=== PATIENT | male | born 1990 | race Caucasian/White ===

== ENCOUNTER 2023-12-07 13:42 | Emergency (ER) | payer OTHER, SELFPAY ==
--- NOTE | ~2023-12-07 | XR_ITS ---
XR chest 2V DATE: 12/07/2023 14:22 INDICATION: Chest pain TECHNIQUE: 2 views, AP and lateral projections COMPARISON: None FINDINGS: Normal heart size. No hilar or mediastinal enlargement. No pulmonary infiltrate or consolid ation, pleural effusion or pulmonary vascular congestion or pneumothorax is detected. There is mild levoscoliosis of the thoracic spine. IMPRESSION: No active cardiopulmonary disease Reviewed, dictated and finalized at location [facility] FROZEN MANAGER
--- NOTE | 2023-12-07 13:43 | ECG_ITS ---
Measurements Intervals [place] Rate: 105 P: 51 PA: 160 QRS: 32 QRSD: 89 T: 38 QT: 333 QTc: 441 Interpretive Statements SINUS TACHYCARDIA INCOMPLETE RIGHT BUNDLE BRANCH BLOCK BASELINE ARTIFACT- I, II, AVR, AVL, AVF, V1 BORDERLINE ECG NO PREVIOUS ECG AVAILABLE FOR COMPARISON Electronically Signed On 12-07-2023 13:57:42 BIRDCAGE ASSEMBLER by Francois Francis D.O.
[2023-12-07 13:54] VITALS: BP 154/90; PULSE 100; RESP 16; TEMP 36.7; O2SAT 100
[2023-12-07 14:39] LABS: Basophils Absolute Auto 0.1 K/mm3 (0.0-0.1); Basophils Percent Auto 0.8 % (0.2-1.2); Eosinophils Absolute Auto 0.3 K/mm3 (0-0.3); Eosinophils Percent Auto 5.4 % (0-4.4); Hematocrit 44.8 % (42.0-52.0); Hemoglobin 15.3 g/dL (14.0-18.0); Immature Granulocyte Absolute 0.01 K/mm3 (0.00-0.031); Immature Granulocyte Percent A 0.2 % (0-0.5); Lymphocytes Percent Auto 50.3 % (18.3-44.2); Mean Corpuscular HGB Conc 34.2 g/dl (32-36); Mean Corpuscular Hemoglobin 29.7 pg (26-34); Mean Platelet Volume 9.9 fl (7.4-10.4); Monocytes Absolute Auto 0.6 K/mm3 (0.1-0.6); Monocytes Percent Auto 9.3 % (2.6-8.5); Neutrophils Absolute Auto 2.1 K/mm3 (1.3-6.7); Platelet Count Result 218 k/mm3 (150-375); Red Blood Count 5.15 M/mm3 (4.6-6.20); Red Cell Distribution Width 12.5 % (11.5-14.5); White Blood Count 6.2 K/mm3 (4.5-10.0)
[2023-12-07 14:51] LABS: Prothrombin Time 13.4 Seconds (11.1-14.7)
[2023-12-07 14:52] LABS: Partial Thromboplastin Time 29.5 SECONDS (22.3-36.8)
[2023-12-07 14:56] LABS: Alanine Aminotransferase 107 U/L (6-50); Albumin Level 4.4 g/dL (3.5-5.1); Alkaline Phosphatase 69 U/L (38-126); Anion Gap 12 mmol/L (8-16); Aspartate Amino Transferase 51 U/L (17-59); Blood Urea Nitrogen 13 mg/dL (9-20); Calcium 9.3 mg/dL (8.4-10.2); Carbon Dioxide 25 mmol/L (22-30); Chloride 105 mmol/L (98-107); Estimated CRCL calculation 92 ml/min; Estimated Glomerular Filt Rate > 60; Glucose 90 mg/dL (65-110); Lipase 176 U/L (23-300); Potassium 3.5 mmol/L (3.4-5.0); Sodium 142 mmol/L (137-145)
[2023-12-07 15:05] LABS: Troponin I < 0.012 ng/mL (0.000-0.034)
[2023-12-07 16:16] VITALS: BP 138/89; PULSE 88; RESP 14; O2SAT 99
[2023-12-07 17:23] VITALS: BP 137/91; PULSE 92; TEMP 36.7; O2SAT 100
--- NOTE | 2023-12-07 17:23 | ECG_ITS ---
Measurements Intervals [place] Rate: 96 P: 46 MT: 148 QRS: 32 QRSD: 87 T: 37 QT: 346 QTc: 439 Interpretive Statements SINUS RHYTHM WITH SINUS ARRHYTHMIA INCOMPLETE RIGHT BUNDLE BRANCH BLOCK BORDERLINE ECG COMPARED TO ECG 12/07/2023 13:50:31 SINUS RHYTHM NOW PRESENT SINUS ARRHYTHMIA NOW PRESENT Electronically Signed On 12-07-2023 19:07:52 LEGAL CLERK by Francois Francis D.O.
[2023-12-07 18:20] LABS: Troponin I < 0.012 ng/mL (0.000-0.034)
[2023-12-07 18:51] VITALS: BP 156/90; PULSE 93; RESP 16; TEMP 37.2; O2SAT 99
--- NOTE | 2023-12-07 18:59 | ED.CHESTPAIN ---
HPI - Chest Pain General Chief Complaint: Chest Pain Stated Complaint: chest pain x1 week Time Seen by Provider: 12/07/23 18:58 History of Present Illness HPI narrative: Patient is a 33-year-old male with no past medical history here today with chest pain. He states that his chest pain has been present over the last week. He notes it is left-sided and wraps around to the back on the left side. Initially extends into his shoulder. He denies any diaphoresis, shortness of breath, changes with exertion. He does note that he is currently moving and moving a lot of furniture and boxes around his home and is unsure if this has caused the pain. No cough. Mild congestion. No history of PE or DVT. No recent travel. No family history of cardiac disease. Related Data Home Medications Medication Instructions Recorded Confirmed No Home Medications 12/07/23 12/07/23 Allergies Allergy/AdvReac Type Severity Reaction Status Date / Time No Known Allergies Allergy Verified 12/07/23 18:52 Review of Systems Review of Systems: All systems reviewed & are unremarkable except as noted in HPI and below Exam Narrative: GENERAL: Well-appearing, well-nourished, and in no acute distress. HEAD: Normocephalic, atraumatic. EYES: PERRLA and EOMI. ENT: Nares clear. Mucous membranes moist. NECK: Supple. CHEST: Clear to auscultation. No respiratory distress. HEART: Regular rate and rhythm. Normal peripheral pulses. ABDOMEN: Soft, nontender, nondistended. EXTREMITIES: Normal range of motion. No lower extremity edema or calf tenderness. Reproducible tenderness to the anterior left shoulder. Normal PMS distal to shoulder. SKIN: Warm, dry, no rash. NEURO: No focal deficits. Alert and oriented x3. PSYCH: Normal mood and affect. Course Course Emergency Course: Chart review performed. Patient here for chest pain intermittent x 1 week. Triage vitals show HTN, otherwise normal. Triage chest pain protocol reviewed. CBC within normal limits. Chemistry within normal limits. Troponin negative x2. No prior visits here in our system. Patient seen evaluated, nontoxic appearing. Negative workup thus far. Unable to apply PERC criteria due to tachycardia on presentation. Will add on D-dimer. HEART score of 1. Anticipate discharge. Repeat troponins are negative, D-dimer negative. The results of pertinent diagnostic studies and exam findings were discussed. The patient?s provisional diagnosis and plan of care were discussed with the patient and present family. The patient and/or present family expressed understanding of the diagnosis and plan. The nurse was instructed to provide written instructions and appropriate follow-up information. The patient understands their need and responsibility to obtain additional follow-up as instructed. The risks of medications administered and prescribed were discussed with the patient and family present. Vital Signs Vital signs: Vital Signs Temperature 98.1 F 12/07/23 13:54 Pulse Rate 100 12/07/23 13:54 Respiratory Rate 16 12/07/23 13:54 Blood Pressure 154/90 H 12/07/23 13:54 Pulse Oximetry 100 12/07/23 13:54 Oxygen Delivery Room Air 12/07/23 13:54 Temperature 98.9 F 12/07/23 18:51 Pulse Rate 93 12/07/23 18:51 Respiratory Rate 16 12/07/23 18:51 Blood Pressure 156/90 H 12/07/23 18:51 Pulse Oximetry 99 12/07/23 18:51 Oxygen Delivery Room Air 12/07/23 13:54 MDM - Chest Pain Lab Data 12/07/23 13:54 12/07/23 13:54 Labs: Lab Results 12/07/23 12/07/23 12/07/23 Range/Units 13:54 13:55 17:28 WBC 6.2 (4.5-10.0) K/mm3 RBC 5.15 (4.6-6.20) M/mm3 Hgb 15.3 (14.0-18.0) g/dL Hct 44.8 (42.0-52.0) % MCV 87.0 (80-100) fl MCH 29.7 (26-34) pg MCHC 34.2 (32-36) g/dl RDW 12.5 (11.5-14.5) % Plt Count 218 (150-375) k/mm3 MPV 9.9 (7.4-10.4) fl Immature Gran % (Auto) 0.2 (0-0.5) % Neut % (Auto)
[2023-12-07 20:48] LABS: Troponin I < 0.012 ng/mL (0.000-0.034)
[2023-12-07 20:52] LABS: D Dimer 0.28 ug/mL (<0.48)
[2023-12-07] MEDS: KETOROLAC 30 MG/ML VIAL (*BKC) 15 MG IM (21:19)
[2023-12-07 21:23] VITALS: BP 142/97; PULSE 74; RESP 15; O2SAT 97
== END 2023-12-07 21:26 | disposition home or self-care (01) ==
PROVIDERS: Emergency Medicine; Emergency Provider Student in an Organized Health Care Education/Training Program
DX: R07.89 Other chest pain (principal); R00.0 Tachycardia, unspecified; I45.10 Unspecified right bundle-branch block
CPT/HCPCS: 36415; 71046; 80053; 83690; 84484; 85025; 85380; 85610; 85730; 93005; 96372; 99284; J1885

== ENCOUNTER 2025-01-16 09:47 | Emergency (ER) | payer BC, SELFPAY ==
[2025-01-16 10:05] VITALS: BP 132/85; PULSE 113; RESP 15; TEMP 37.3; O2SAT 98
--- NOTE | 2025-01-16 10:12 | ED.URI ---
HPI - URI/Sore Throat General Chief Complaint: Upper Respiratory Infection Stated Complaint: Sinus Time Seen by Provider: 01/16/25 09:50 Source: patient Mode of arrival: ambulatory Limitations: no limitations History of Present Illness HPI Narrative: Patient is a 34-year-old male that presents with congestion, headache, body ache, fatigue, nausea, diarrhea and GI upset since yesterday. Denies any fever, chills, sore throat, vomiting, cough. Has not taken anything for symptoms. For Related Data Allergies Allergy/AdvReac Type Severity Reaction Status Date / Time No Known Allergies Allergy Verified 01/16/25 09:55 Review of Systems Review of Systems: All systems reviewed & are unremarkable except as noted in HPI and below Constitutional: Constitutional: Denies chills, Reports fatigue, Denies fever(s), Reports headache(s), Denies malaise and Denies weakness Eyes: Eyes: Denies blurry vision, Denies itchy eyes and Denies loss of vision ENT: Denies otalgia, Reports headache(s), Reports nasal congestion, Denies sinus pain and Denies sore throat Cardiovascular: Cardiovascular: Denies chest pain, Denies irregular heart rhythm and Denies dyspnea Respiratory: Respiratory: Reports cough and Denies dyspnea Gastrointestinal: Gastrointestinal: Reports abdominal pain, Denies diarrhea, Reports nausea and Denies vomiting Musculoskeletal: Musculoskeletal: Denies back pain, Reports myalgias and Denies arthralgias Integumentary/Breasts: Skin/Breast: Denies pruritus and Denies rash Neurologic: Reports headache(s), Denies loss of vision and Denies weakness Psychiatric: Psychiatric: Reports no additional psychiatric complaints Endocrine: Endocrine: Denies fatigue Allergic/Immunologic: Allergic/Immunologic: Denies itchy eyes PMFSH Past Medical History Medical History Chronic sinusitis Surgical History Surgical History H/O nasal septoplasty 12/2023 H/O hernia repair 2017 Family History Family History Grandparent Colon cancer Social History Social History Smoking status: Never smoker Alcohol intake: never Substance use: never Substance use type: does not use Do You Feel Safe in your Home?: Yes Lack of Transportation: No Lack of Food: Never True Current Housing: I Have Housing Concerned About Future Housing: No Difficulty Paying Gas/Electric Bills: No Difficulty Paying for Meds: No Currently Unemployed: No Education: Bachelor's Degree Difficulty w/ Childcare or Family Care: No Comments At time of signature, agree with nursing past medical, surgical, social and family history. There is no relevant family history pertinent to the presenting complaint. Exam Const: General: cooperative, healthy appearing, comfortable, no acute distress and well nourished Nutritional Appearance: well nourished Orientation/consciousness: patient oriented x3 Limitations: no limitations HENMT: Head: normal to inspection, normocephalic and atraumatic Ears: hearing grossly normal bilaterally, external ears normal, TM's normal bilaterally, EAC's normal and no periauricular adenopathy Face/Nose/Sinus: Normal external nose present, Abnormal mucous membranes and turbinates present erythematous bilateral and diffuse, normal facial exam, sinuses nontender and face symmetric Face and sinus: normal facial exam, sinuses nontender and face symmetric Mouth: Yes Normal oral and palatal mucosa present, Yes lip normal, Yes tongue normal, Yes Normal salivary glands and ducts present, Yes oropharynx normal and Yes moist mucous membranes Teeth and gingiva: dentition normal Throat: posterior oropharynx normal, tonsils normal and uvula midline Eyes: General: appearance normal, both eyes and all related structures Alignment and Position: alignment normal and position normal Periorbital: periorbital findings normal Eyelids: eyelids normal Pupils: Equal, round and reactive pupils present Neck: Neck: normal visual inspection, full ROM, no lymphadenopathy and supple Chest: Chest palpation & inspection: normal inspection of the chest and normal palpation of entire chest wall Resp: Effort & Inspection: normal respiratory effort and able to speak in complete sentences Auscultation: clear to auscultation bilaterally, no crackles, no rales, no rhonchi and no wheezes Cardio: Rate: tachycardic Rhythm: regular rhythm Heart sounds: S1 normal heart sound present and S2 normal heart sound present GI: Inspection: normal to inspection Skin: General skin exam: normal color and no rashes or lesions noted Neuro: General: patient oriented x3 and moves all extremities Cranial nerves: Yes Equal, round and reactive pupils present Speech: normal speech Gait exam (Neuro): Normal gait present Extrem: General: normal to inspection, full ROM and no edema Psych: Appearance: grossly normal and well kempt Mental Status: mental status grossly normal Speech and movement: Normal speech and movement present Affect: normal affect Attitude: cooperative Thought process: Normal thought process present Course Course Emergency Course: Discharge instructions reviewed with patient, as well as provided in writing per nursing staff. The instructions also include specific and strict return/GO TO THE ER as well as f/u information. All questions have been answered, and the patient deny any further questions with discharge and discharge plan. Portions of this record may have been created with voice recognition software Level of Care: Express Care Visit Vital Signs Vital signs: Vital Signs Temperature 37.3 C 01/16/25 10:05 Pulse Rate 113 H 01/16/25 10:05 Respiratory Rate 15 01/16/25 10:05 Blood Pressure 132/85 01/16/25 10:05 Pulse Oximetry 98 01/16/25 10:05 Oxygen Delivery Room Air 01/16/25 10:05 Temperature 37.3 C 01/16/25 10:05 Pulse Rate 113 H 01/16/25 10:05 Respiratory Rate 15 01/16/25 10:05 Blood Pressure 132/85 01/16/25 10:05 Pulse Oximetry 98 01/16/25 10:05 Oxygen Delivery Room Air 01/16/25 10:05 Reviewed MDM - URI/Sore Throat MDM Narrative Medical decision making narrative: Pt well hydrated appearing, in no respiratory distress, hemodynamically stable. Recommend supportive care. The patient is stable at time of discharge the clinical impression was discussed and the patient was given the opportunity to ask questions, which were addressed as completely as possible given the information available at present. Anticipatory guidance and return to care precautions were discussed and the importance of primary care follow-up was stressed and encouraged. The patient voiced understanding of the plan, indications to return, and the need for follow-up. Differential diagnosis considered: Bronchitis, Ojhnson virus, strep pharyngitis, allergic rhinitis, upper respiratory tract infection, sinusitis, rhinosinusitis, nasopharyngitis. viral pharyngitis, otitis media, otitis externa, otitis effusion, foreign body, cerumen impaction, viral syndrome, and influenza.? Exam findings show no acute concerns or changes; patient is non-toxic appearing and is in no distress.? Patient is appropriate for outpatient treatment and follow-up.? Medical Records Attestation: I reviewed the patient's medical records. Lab Data Attestation: I reviewed the patient's lab results. Labs: Lab Results 01/16/25 Range/Units 10:16 POC Influenza A Ag Positive (Negative) POC Influenza B Ag Negative (Negative) POC SARS CoV-2 Ag Negative (Negative) Discharge Plan Discharge Clinical Impression: Influenza Patient Disposition: Home, Self-Care Condition: Stable Instructions: Influenza (ED) Additional Instructions: Were positive for influenza A. Your Covid is negative Your symptoms are due to a viral illness, which is not treated with antibiotics. Viral symptoms can be present for up to a few weeks. -For fever/pain, you may take: Tylenol 650-1000mg by mouth every 4-6 hours. Do not exceed 4000mg in 24 hours. Advil (Ibuprofen) 600 mg by mouth every 6 hours. Do not exceed 2400mg in 24 hours. 8 AM: Tylenol 11 AM: Ibuprofen 2 PM: Tylenol 5 PM: Ibuprofen 8 PM: Tylenol 11 PM: Ibuprofen 2 AM: Tylenol 5 AM: Ibuprofen -Antihistamine medication such as Benadryl/Zyrtec at night and Claritin/Rachele during the day can help improve symptoms. -Use Flonase twice a day for 5 days then daily to help reduce the inflammation and dry up your sinuses. -You can also use Sudafed behind the pharmacy counter(12 or 24 hour). Be sure to drink plenty of water with these medications at least 8 ounces with every dose and it is important to drink 8 to 10 glasses of water per day. Water is a natural decongestant -Eat and drink things that are easy to swallow, like tea or soup, or popsicles. -Oral rinses such as: Salt water gargles and/or may use topical anesthetic (eg. Chloraseptic spray) or lozenges to relieve dryness or throat pain). -Frequent hand washing or hand speech language pathologist travel is one of the best ways to prevent spread of infection. -Using a vaporizer or humidifier at night will also help thin secretions and help with coughing up phlegm. -Follow up with primary care provider in 3-5 days if condition is not improving - For new or worsening symptoms go directly to the nearest ER Patient Language: Cam[place] Prescriptions: New oseltamivir [Tamiflu] 75 mg capsule 75 mg PO Q12H 5 Days Qty: 10 0RF Follow-up/Referrals: oNam Dyson DO [Primary Care Provider] - 3 Days Stand Alone Forms: Work/School Release IP Time of Disposition: 10:24
[2025-01-16 10:18] LABS: EDCOVIDSCREEN Negative (Negative); EDINFLUASCREEN Positive (Negative); EDINFLUBSCREEN Negative (Negative)
== END 2025-01-16 10:30 | disposition home or self-care (01) ==
PROVIDERS: Emergency Provider Nurse Practitioner Family; PCP Family Medicine
DX: J10.1 Influenza due to other identified influenza virus with other respiratory manifestations (principal); Z20.822 Contact with and (suspected) exposure to COVID-19
CPT/HCPCS: 87426; 87804; 99213; G0463

== ENCOUNTER 2025-02-11 18:43 | Emergency (ER) | payer BC, SELFPAY ==
--- NOTE | 2025-02-11 18:52 | ED.URI ---
HPI - URI/Sore Throat General Chief Complaint: Upper Respiratory Infection Stated Complaint: sinus issue,face red,cough,weak Time Seen by Provider: 02/11/25 19:02 Source: patient and RN notes reviewed Mode of arrival: ambulatory Limitations: no limitations History of Present Illness HPI Narrative: 34-year-old male presents, drainage, pressure. Reports he had sinus surgery 5 days ago. He did not call his surgeon regarding these problems. He was prescribed a Medrol Dosepak after surgery, he was not aware of it and did not pick it upper take it. He reports he has been using saline rinses. He has not taken antihistamines because he has it upcoming allergy test. He reports some cough in general malaise. MD elicited complaint: sinus pain Related Data Home Medications ?Medication ?Instructions ?Recorded ?Confirmed ?Last Taken ?Type hydrocodone 5 mg-acetaminophen 325 tablet 02/11/25 Unknown History mg tablet methylprednisolone 4 mg tablets in mg 02/11/25 Unknown History a dose pack Allergies Allergy/AdvReac Type Severity Reaction Status Date / Time No Known Allergies Allergy Verified 02/11/25 18:44 Review of Systems Review of Systems: CONSTITUTIONAL: Reports malaise. Denies chills, sweats, or fever. EYES: Denies visual changes, redness, or discharge. ENT: Reports rhinorrhea, congestion, sinus pain CARDIOVASCULAR: Denies chest pain, palpitations, or edema. RESPIRATORY: Reports cough. Denies dyspnea. GASTROINTESTINAL: Denies abdominal pain, nausea, vomiting, diarrhea SKIN: Denies rash or itching. MUSCULOSKELETAL: Denies myalgia. NEUROLOGIC: Denies headache. All systems reviewed & are unremarkable except as noted in HPI and below PMFSH Past Medical History Medical History Chronic sinusitis Surgical History Surgical History H/O nasal septoplasty 12/2023 H/O hernia repair 2017 Family History Family History Grandparent Colon cancer Social History Social History Smoking status: Never smoker Alcohol intake: never Substance use: never Substance use type: does not use Do You Feel Safe in your Home?: Yes Lack of Transportation: No Lack of Food: Never True Current Housing: I Have Housing Concerned About Future Housing: No Difficulty Paying Gas/Electric Bills: No Difficulty Paying for Meds: No Currently Unemployed: No Education: Bachelor's Degree Difficulty w/ Childcare or Family Care: No Comments At time of signature, agree with nursing past medical, surgical, social and family history. There is no relevant family history pertinent to the presenting complaint Exam Narrative: GENERAL: Well-appearing, well-nourished, and in no acute distress. HEAD: Normocephalic EYES: PERRLA, conjunctivae clear ENT: Nares clear, turbinates edematous and erythematous, berry discharge. Mucous membranes moist. TM pearly francis with dull light reflex bilaterally; no tragal tenderness. Oropharynx not erythematous without lesions. Tonsils not enlarged and without exudate, no drooling, no hoarseness, no trismus, uvula midline. NECK: Supple. No lymphadenopathy CHEST: Clear to auscultation, breath sounds equal. No wheezing, rhonchi, rales, or stridor. No respiratory distress, speaks in full sentences. HEART: Regular rate and rhythm. No murmur heard. SKIN: Warm, dry, no rash. NEURO: Alert and oriented x3. PSYCH: Normal mood and affect Course Course Emergency Course: Patient was instructed to call his surgeon tomorrow. Anticipatory guidance given. Patient agrees to follow-up as directed and is aware of reasons to seek care at the emergency department. Portions of this record may have been created with voice recognition software Level of Care: Express Care Visit Vital Signs Vital signs: Vital Signs Temperature 98.7 F 02/11/25 18:54 Pulse Rate 95 02/11/25 18:54 Respiratory Rate 16 02/11/25 18:54 Blood Pressure 151/90 H 02/11/25 18:54 Pulse Oximetry 98 02/11/25 18:54 Oxygen Delivery Room Air 02/11/25 18:54 Temperature 98.7 F 02/11/25 18:54 Pulse Rate 95 02/11/25 18:54 Respiratory Rate 16 02/11/25 18:54 Blood Pressure 151/90 H 02/11/25 18:54 Pulse Oximetry 98 02/11/25 18:54 Oxygen Delivery Room Air 02/11/25 18:54 Reviewed. MDM - URI/Sore Throat MDM Narrative Medical decision making narrative: Differential diagnosis considered: Johnson virus, strep pharyngitis, allergic rhinitis, upper respiratory tract infection, sinusitis, rhinosinusitis, nasopharyngitis. viral pharyngitis, otitis media, otitis externa, pneumonia, bronchitis, viral cough syndrome, viral syndrome, and influenza. Exam findings show no acute concerns or changes; patient is non-toxic appearing and is in no distress. Patient is appropriate for outpatient treatment and follow-up. Lab Data Attestation: I reviewed the patient's lab results. Critical Care Time Critical Care Time Critical Care Time: No Discharge Plan Discharge Clinical Impression: Sinusitis Patient Disposition: Home, Self-Care Condition: Stable Instructions: Antibiotic Form, Sinusitis (ED) Additional Instructions: 1) Please follow-up with your ENT tomorrow. 2) If you have any worsening of symptoms or any other urgent concerns please go to the ER. 3) Please take medications as prescribed and continue taking your home medications as usual. 4) Please read and follow information included in discharge instructions. Patient Language: [place] Prescriptions: New methylprednisolone [Medrol (Daniel)] 4 mg tablets,dose pack See Rx Instructions .ROUTE .COMPLEX Qty: 21 0RF Rx Instructions: orally per package directions amoxicillin-pot clavulanate 875-125 mg tablet 1 tablet PO Q12H 10 Days Qty: 20 0RF No Action hydrocodone-acetaminophen 5-325 mg tablet methylprednisolone 4 mg tablets,dose pack Follow-up/Referrals: Noam Dyson DO [Primary Care Provider] - Time of Disposition: 19:12
[2025-02-11 18:54] VITALS: BP 151/90; PULSE 95; RESP 16; TEMP 37.1; O2SAT 98
== END 2025-02-11 19:15 | disposition home or self-care (01) ==
PROVIDERS: Emergency Provider Nurse Practitioner; PCP Family Medicine
DX: J32.9 Chronic sinusitis, unspecified (principal)
CPT/HCPCS: 99213; G0463

== ENCOUNTER 2025-03-04 09:20 | Emergency (ER) | payer BC, SELFPAY ==
--- NOTE | 2025-03-04 09:23 | ED_ITS ---
HPI - URI/Sore Throat General Chief Complaint: Upper Respiratory Infection Stated Complaint: Congested Time Seen by Provider: 03/04/25 09:32 Source: patient, RN notes reviewed and old records reviewed Mode of arrival: ambulatory Limitations: no limitations History of Present Illness HPI Narrative: 35-year-old male presents to the [facility] with complaints of congestion that started yesterday, fatigue started today. Denies fevers. No treatment prior to arrival. Treatments prior to arrival: none Related Data Home Medications ?Medication ?Instructions ?Recorded ?Confirmed ?Last Taken ?Type hydrocodone 5 mg-acetaminophen 325 tablet 02/11/25 Unknown History mg tablet Allergies Allergy/AdvReac Type Severity Reaction Status Date / Time No Known Allergies Allergy Verified 03/04/25 09:21 Review of Systems Review of Systems: All systems reviewed & are unremarkable except as noted in HPI and below Constitutional: Constitutional: Reports as per HPI and Reports fatigue ENT: Reports as per HPI Cardiovascular: Cardiovascular: Reports no additional cardiovascular com plaints, Denies chest pain and Denies dyspnea Respiratory: Respiratory: Reports no additional respiratory complaints, Denies chest congestion, Denies cough and Denies dyspnea Musculoskeletal: Musculoskeletal: Reports no additional musculoskeletal complaints Integumentary/Breasts: Skin/Breast: Reports system reviewed and no additional complaints, except as docu PMFSH Past Medical History Medical History Chronic sinusitis Surgical History Surgical History H/O nasal septoplasty 12/2023 H/O hernia repair 2018 Family History Family History Grandparent Colon cancer Social History Social History Smoking status: Never smoker Alcohol intake: never Substance use: never Substance use type: does not use Do You Feel Safe in your Home?: Yes Lack of Transportation: No Lack of Food: Never True Current Housing: I Have Housing Concerned About Future Housing: No Difficulty Paying Gas/Electric Bills: No Difficulty Paying for Meds: No Currently Unemployed: No Education: Bachelor's Degree Difficulty w/ Childcare or Family Care: No Comments At the time of my signature, I reviewed and agree with the nursing past medical, surgical, social, and family history. There is no relevant family history pertinent to the patient complaint. Exam Const: General: cooperative, healthy appearing, comfortable, no acute distress, well developed, alert and well nourished Nutritional Appearance: well nourished Orientation/consciousness: patient oriented x3 Limitations: no limitations HENMT: Head: normal to inspection Ears: hearing grossly normal bilaterally, external ears normal, TM's normal bilaterally, EAC's normal, mastoids normal and no periauricular adenopathy Face/Nose/Sinus: Normal external nose present, Normal nares present and No nasal discharge present Face and sinus: normal facial exam, sinuses nontender, face symmetric and no ecchymosis Mouth: Yes Normal oral and palatal mucosa present, Yes lip normal, Yes tongue normal and Yes moist mucous membranes Throat: posterior oropharynx normal, uvula midline, postnasal drainage and no uvular edema Eyes: General: appearance normal, both eyes and all related structures Alignment and Position: alignment normal Neck: Neck: normal visual inspection, full ROM, no lymphadenopathy and no meningeal signs Chest: Chest palpation & inspection: normal inspection of the chest Resp: Effort & Inspection: normal respiratory effort and able to speak in complete sentences Auscultation: clear to auscultation bilaterally, no crackles, no rales, no rhonchi and no wheezes Cardio: Rate: regular rate Skin: General skin exam: normal color and no rashes or lesions noted Neuro: General: patient oriented x3, gait normal, moves all extremities and no meningeal signs Cognition (Neuro): normal cognition Speech: normal speech Gait exam (Neuro): Normal gait present Extrem: General: normal to inspection, full ROM, capillary refill normal and normal gait Psych: Appearance: grossly normal and well kempt Mental Status: mental status grossly normal Speech and movement: Normal speech and movement present and Clear speech present Affect: normal affect Attitude: cooperative Course Course Level of Care: Express Care Visit Vital Signs Vital signs: Vital Signs Temperature 97.8 F 03/04/25 09:29 Pulse Rate 117 H 03/04/25 09:29 Respiratory Rate 16 03/04/25 09:29 Blood Pressure 157/87 H 03/04/25 09:29 Pulse Oximetry 98 03/04/25 09:29 Oxygen Delivery Room Air 03/04/25 09:29 Temperature 97.8 F 03/04/25 09:29 Pulse Rate 117 H 03/04/25 09:29 Respiratory Rate 16 03/04/25 09:29 Blood Pressure 157/87 H 03/04/25 09:29 Pulse Oximetry 98 03/04/25 09:29 Oxygen Delivery Room Air 03/04/25 09:29 Reviewed MDM - URI/Sore Throat MDM Narrative Medical decision making narrative: Patient sitting in exam room. Patient is nontoxic, vitals stable. Patient in no acute distress. Patient presents with 1 day of sinus congestion, started with fatigue today. Denies any other symptoms. Patient's flu COVID strep were all negative, will strep culture. Patient most likely with viral sinusitis. Patient appropriate for outpatient treatment and close follow-up Discharge instructions reviewed with patient, as well as provided in writing per nursing staff. The instructions also include specific and strict return/GO TO THE ER as well as f/u information. All questions have been answered, and the patient deny any further questions with discharge and discharge plan. Some parts of this dictation were generated by voice recognition software and may contain typographical and/or grammatical inaccuracies. Differential Diagnosis Differential diagnosis: Likely upper respiratory infection, otitis media, sinusitis, viral infection, bronchitis, influenza and pharyngitis Lab Data Labs: Lab Results 03/04/25 Range/Units 09:38 POC Influenza A Ag Negative (Negative) POC Influenza B Ag Negative (Negative) POC SARS CoV-2 Ag Negative (Negative) POC Grp A Strep Screen Negative (Negative) Reviewed Critical Care Time Critical Care Time Critical Care Time: No Discharge Plan Discharge Clinical Impression: Upper respiratory infection, viral Patient Disposition: Home Condition: Stable Instructions: Antibiotic Form Additional Instructions: Today your blood pressure was 157/87. Please follow-up with primary care provider within 2 weeks at this rechecked. Your rapid strep swab was negative today at [facility]. A throat culture will be sent to the laboratory for further testing. If the test is positive, you will receive a phone call within 48 hours and an appropriate antibiotic will be initiated at that time. Your rapid COVID test were negative Your rapid flu test was negative Your symptoms are likely due to a viral illness, which is not treated with antibiotics. Typically viral infections last 7-10 days, can linger for couple of weeks. It is very important to treat your symptoms. Drink plenty of water, Gatorade, Pedialyte, ice pops or Jell-O. -Alternate Tylenol and Motrin per package directions for fever or pain. You can alternate every 4 hours -Antihistamine medication such as Zyrtec/Claritin/Rachele during the day can help improve symptoms. -doing daily nasal irrigations can help relieve pressure your sinuses. Things like a Neti pot -Use Flonase twice a day for 5 days then daily to help reduce the inflammation and dry up your sinuses. -You can also use Mucinex. Be sure to drink plenty of water with this medication at least 8 ounces with every dose and it is important to drink 8 to 10 glasses of water per day. Water is a natural decongestant -Eat and drink things that are easy to swallow, like tea or soup, or popsicles. -Oral rinses such as: Salt water gargles and/or may use topical anesthetic (eg. Chloraseptic spray) or lozenges to relieve dryness or throat pain). -Frequent hand washing or hand experimental aircraft mechanic is one of the best ways to prevent spread of infection. -Using a vaporizer or humidifier at night will also help thin secretions and help with coughing up phlegm. -Follow up with primary care provider in 7-10 days if condition is not improving - For new or worsening symptoms go directly to the nearest ER Patient Language: Kyrgyz Prescriptions: No Action hydrocodone-acetaminophen 5-325 mg tablet Follow-up/Referrals: Noam Dyson DO [Primary Care Provider] - 2 Weeks ([facility] follow-up, URI Blood pressure check 157/87) Stand Alone Forms: Work/School Release IP Time of Disposition: 10:13
[2025-03-04 09:29] VITALS: BP 157/87; PULSE 117; RESP 16; TEMP 36.6; O2SAT 98
[2025-03-04 09:52] LABS: EDSTREPNEGPOS1 Negative (Negative)
[2025-03-04 09:58] LABS: EDCOVIDSCREEN Negative (Negative); EDINFLUASCREEN Negative (Negative); EDINFLUBSCREEN Negative (Negative)
== END 2025-03-04 10:20 | disposition home or self-care (01) ==
PROVIDERS: Emergency Provider Nurse Practitioner; PCP Family Medicine
DX: J06.9 Acute upper respiratory infection, unspecified (principal); Z20.822 Contact with and (suspected) exposure to COVID-19
CPT/HCPCS: 87081; 87426; 87804; 87880; 99213; G0463

== ENCOUNTER 2025-03-31 09:56 | Outpatient (CLI) | payer BC, SELFPAY ==
--- OUTSIDE RECORDS SUMMARY | 2025-03-31 10:48 | XMS_ITS | Clinical Summary ---
Author Organization [facility] Address [address] [place] [id number] Care Team Providers Care Petroleum Production Engineer Name Role Phone Catherine Ashby MD Primary Care Prov ider Allergies No known active allergies Medications fexofenadine-pse udoephedrine SR 12 hour (NOREEN-D) 60-120 mg tablet Take 1 Tablet by mouth 2 times daily. Active mometasone (NASONEX) 50 mcg/actuation [place], Non-Aerosol Administer 1 [place] in each nostril daily. 17 Gram 2 3 Active multivitamin (DAILY-JOANA) tablet Take 1 Tablet by mouth daily. Active azelastine (ASTELIN) 137 mcg/actuation nasal sprayIndications :Seasonal allergic rhinitis due to pollen,Chronic sinusitis, unspecified location Administer 2 Sprays in each nostril 2 times daily. 30 mL 2 4 Active Active Problems Problem Noted Date Diagnosed Date Seasonal allergic rhinitis due to pollen 020 Allergic eczema 06/18/2020 Resolved Problems Problem Noted Date Diagnosed Date Resolved Date Right inguinal hernia 06/18/20202020 Encounters Date Type Department Care Team Description 01/21/2025 External Device Data [facility] ABSTRACTION Provider, Abstract from Last 3 Months Immunizations Immunization Administration Dates Next Due (ADACEL/BOOSTRIX)(10 YR UP) TDAP VACCINE, 0.5ML, IM 11/27/2006 Family History Medical History Relation Name Comments Hypertension Father Other Father sleep apnea Other Maternal Grandfather complic ations of hip fx Unknown Maternal Grandmother Other Mother sleep apnea Colon Cancer Paternal Grandfather Unknown Paternal Grandmother brain a neurysm Relation Name Status Comments Father Alive Maternal Grandfather Maternal Grandmother Alive Mother Alive Paternal Grandfather Paternal Grandmother Social History Tobacco Use Types Packs/Day Years Used Date Smoking Tobacco: Former Cigarettes 0.5 4 0 11/27/2006 - 11/27/2010 Smokeless Tobacco: Never Tobacco Cessation:Counseling Given: Not Answered Alcohol Use Standard Drinks/Week Comments Yes 0 (1 standard drink = 0.6 oz pur e alcohol) < once a month Feeling Safe Answer Date Recorded Are you in a relationship wi th someone who hurts you emotionally and/or physically? No 12/26/2023 Sex and Gender Information Value Date Recorded Sex Assigned at Not on file Legal Sex Male 11:53 AM CDT Gender Identity Not on file Sexual Orientation Not on file Last Filed Vital Signs Vital Sign Reading Time Taken Comments Blood Pressure 153/98 12/26/2023 7:56 AM CLINICAL RESEARCH TECHNICIAN Pulse 72 12/26/2023 7:56 AM CLINICAL RESEARCH TECHNICIAN Temperature 36 C (96.8 F) 12/26/2023 6:42 AM CLINICAL RESEARCH TECHNICIAN Respiratory Rate 16 09/16/2024 9:05 AM CDT Oxygen Saturation 98% 12/26/2023 7:56 AM CLINICAL RESEARCH TECHNICIAN Inhaled Oxygen Concentration - - Weight 95.3 kg (210 lb) 09/16/2024 9:05 AM CDT Height 182.9 cm (6') 09/16/2024 9:05 AM CDT Body Mass Index 28.48 09/16/2024 9:05 AM CDT Plan of Treatment Health Maintenance Due Date Last Done Comments Pre-Diabetes and Diabetes Screening 1989 DTAP/TDAP/TD VACCINES (3 - Td or Tdap) 02/12/2020 02/11/2010, 11/27/2006 INFLUENZA VACCINE (#1) 2024 , 08/20/2012, 08/22/2011, Additional history exists Preventative Visit- Commercial 11/27/2024 08/22/2023, 06/18/2020 HEPATITIS B VACCINES Completed 02/12/2008, 08/04/2007, 07/05/2007 HPV VACCINES Aged Out No longer eligi ble based on patient's age to complete this topic Medical Devices Implanted Type Area Nuclear Plant Instrument Technician Device Identifier Shelf Expiration Date Model / Serial / Lot Mesh Plug Perfix Light [id number] - [id number] Implanted:Qty : 1 on 03/02/2021 by Antoni Cox MD at [facility] Mesh Right: Inguinal [employer] [id number] 09/23/2023 [id number] / / [id number] Insurance [facility] [id number] RX [employer] (INTERNAL) [facility] [employer] RX [employer] RX Member Subscriber Plan / Payer (Ef fective 2023-Present) Name:Terell Mejia Relation to Subscriber:Self Name:Roberto Terell Subscriber ID:Not on file Payer ID:Not on file Group ID:[id number] Type:RX Commercial Address: [address] Advance Directives For more information, please contact: [phone] * Full Code (Latest Code Status on File) Date Activated Date Inactivated Comments 12/21/2023 12:43 PM 12/21/2023 4:08 PM * Full Code Date Activated Date Inactivated Comments 12/21/2023 8:08 AM 12/21/2023 12:43 PM * Full Code Date Activated Date Inactivated Comments 03/02/2021 5:58 AM 03/02/2021 12:40 PM Care Teams Petroleum Production Engineer Relationship Specialty Start Date End Date Catherine Ashby MD [address] [place] [phone] PCP - General Family Practice 09/02/24
--- NOTE | 2025-04-08 17:04 | WPDHOLTEREM ---
Holter/Event Monitor Holter/Event Monitor Date of procedure: 03/31/25 Holter/Event Procedure: 3-7 Day Holter Monitor Indications: Tachycardia Conclusion: 1. 3 days holter monitor on 03/31/25. 2. Underlying rhythm is sinus rhythm. HR range 58-145 bpm; average HR 101 bpm. HR at 145 bpm was on 04/01/25 at 6:30 pm. 3. There are rare premature supraventricular complexes and rare supraventricular triplets. No supraventricular tachycardia. 4. There are rare premature ventricular complexes. No ventricular tachycardia. 5. No significant pauses greater than 3 seconds. 6. No symptoms available for correlation.
== END 2025-03-31 09:57 | disposition home or self-care (01) ==
PROVIDERS: PCP Family Medicine; Visit Provider Family Medicine
DX: I49.1 Atrial premature depolarization (principal); I49.3 Ventricular premature depolarization; R03.0 Elevated blood-pressure reading, without diagnosis of hypertension
CPT/HCPCS: 93242

== ENCOUNTER 2025-07-01 12:15 | Outpatient (RCR) | payer BC, SELFPAY ==
[2025-07-01 12:44] VITALS: BMI 31.2
== END 2025-09-15 08:19 | disposition home or self-care (01) ==
LOC: ANHWOC 12:15
PROVIDERS: PCP Family Medicine; Visit Provider Family Medicine
DX: J34.89 Other specified disorders of nose and nasal sinuses (principal); G47.33 Obstructive sleep apnea (adult) (pediatric); S01.20XA Unspecified open wound of nose, initial encounter
CPT/HCPCS: 99213; A9270; G0463

== ENCOUNTER → 2025-09-01 10:52 | Outpatient (CLI) | payer BC, SELFPAY ==
--- NOTE | ~2025-09-01 | XR_ITS ---
XR lumbar spine 2-3V Indication: M54.9 - Dorsalgia LBP years, no recent injury or trauma Comparison: None Findings: The vertebral heights are intact. No fracture or subluxation. The disc heights are intact. Soft tissues unremarkable Impression: No acute abnormality. Reviewed, dictated and finalized at location P. Impression: No acute abnormality.
--- NOTE | ~2025-09-01 | XR_ITS ---
XR_CERV2-3V_CR Indication: M54.2 Cervicalgia neck pain cpl weeks no injury limited rom Comparison: None Findings: The vertebral heights are intact. No fracture or subluxation. The disc heights are intact. Soft tissues unremarkable Impression: No acute abnormality. Reviewed, dictated and finalized at location P. Impression: No acute abnormality.
== END ==
LOC: EXPCRAD 10:54
PROVIDERS: PCP Family Medicine; Visit Provider Family Medicine
DX: M54.2 Cervicalgia (principal); M54.50 Low back pain, unspecified
CPT/HCPCS: 72040; 72100